=== PATIENT | female | born 1975 | race Caucasian/White ===

== ENCOUNTER → 2023-03-02 10:09 | Outpatient (CLI) | payer OTHER, SELFPAY ==
--- NOTE | ~2023-03-02 | MR_ITS ---
MRI of the left knee Clinical history: Pain Technique: Coronal proton density and proton density-weighted images, sagittal proton-density and T2 fat-sat images, and axial proton-density fat-saturated images were acquired. Findings: Anterior and posterior cruciate ligaments are intact. Medial collateral ligament and the la teral collateral ligament complex are intact. Popliteus tendon is intact. Medial and lateral menisci appear intact, without evidence for tear. Articular cartilage in the medial lateral compartment is well preserved. Femoral trochlear cartilage is intact. There is a focal moderate to high-grade chondral lesion at the medial patellar facet. Bone marrow signals are unremarkable. Extensor mechanism is intact. There are small joint effusion. No Dos Santos's cyst. Impression: Focal moderate to high-grade chondral lesion at the medial patellar facet. Small joint effusion. Reviewed, dictated and finalized at [facility]. Impression: Focal moderate to high-grade chondral lesion at the medial patellar facet. Small joint effusion.
== END ==
PROVIDERS: PCP Nurse Practitioner Family; Visit Provider Nurse Practitioner Family
DX: M25.562 Pain in left knee (principal); M25.462 Effusion, left knee
CPT/HCPCS: 73721